=== PATIENT | female | born 1940 | race Caucasian/White ===

== ENCOUNTER → 2016-06-08 | Outpatient (REF) | payer MEDICARE, MEDICAID ==
[2016-06-08 13:35] LABS: PERCENT SATURATION 25.4 % (13.2-37.4)
== END ==
LOC: M LAB REF 12:52
PROVIDERS: ATTEND Nurse Practitioner Family
DX: N39.0 Urinary tract infection, site not specified (principal); D63.1 Anemia in chronic kidney disease; N18.9 Chronic kidney disease, unspecified

== ENCOUNTER → 2016-09-22 | Outpatient (REF) | payer MEDICARE, MEDICAID | LOC: M LAB REF 10:02 | PROVIDERS: ATTEND Physician Assistant | DX: R30.0 Dysuria (principal) ==

== ENCOUNTER 2017-01-28 14:12 | Emergency (ER) | payer MEDICARE, MEDICAID ==
[~2017-01-28] VITALS: Ht 160 cm; Wt 81.8 kg
[2017-01-28] MEDS ORDERED: [UNRECOGNIZED DRUG - OTHER] PO (14:37)
[2017-01-28] MEDS ORDERED: CRES20TA PO (14:37)
[2017-01-28] MEDS ORDERED: LANTINJ4 SC (14:37)
[2017-01-28] MEDS ORDERED: TRAD5TAB PO (14:37)
[2017-01-28] MEDS ORDERED: GLIPPOW PO (14:37)
[2017-01-28] MEDS ORDERED: AMOX500T PO (14:37)
[2017-01-28] MEDS ORDERED: MAGN64TASA PO (14:37)
[2017-01-28] MEDS ORDERED: LEVO50TA5 PO (14:37)
--- NOTE | 2017-01-28 15:42 | REP ---
PA and lateral chest: Comparison 11/29/2014. There is focal increased density above the right hemidiaphragm medially as an interval change. This could be artifact from diaphragmatic lobulation, long mass or infiltrate. This was not definitely present previously. CT might be considered for further evaluation. The remainder of the lung isidro are clear. Cardiac size is normal. The wero, mediastinum, and bony thorax are unremarkable. Impression: Infiltrate versus mass versus diaphragmatic lobulation in relation to the right hemidiaphragm. Consider CT. Signed by Kimani Mcmanus MD 01/28/2017 03:33 P
[2017-01-28 17:41] VITALS: BP 184/87
[2017-01-28] MEDS ORDERED: ZITHTAB PO (18:04)
== END 2017-01-28 18:19 | disposition left against medical advice (07) ==
LOC: M ED 14:12
DX: E11.9 Type 2 diabetes mellitus without complications (principal); E07.9 Disorder of thyroid, unspecified; E87.70 Fluid overload, unspecified; Z79.4 Long term (current) use of insulin; Z79.899 Other long term (current) drug therapy; Z88.8 Allergy status to other drugs, medicaments and biological substances

== ENCOUNTER → 2017-09-30 | Outpatient (REF) | payer MEDICARE, MEDICAID | LOC: M LAB REF 13:53 | DX: N39.0 Urinary tract infection, site not specified (principal) | CPT/HCPCS: 87186 ==

== ENCOUNTER 2018-03-29 11:36 | Emergency (ER) | payer MEDICARE, MEDICAID ==
[2018-03-29 12:56] LABS: BASO % 0.1 % (0.0-1.0); EOS # 0.1 10^3/uL (0.0-0.50); EOS % 0.7 % (0.0-3.0); HEMATOCRIT 36.3 % (36.0-47.0); HEMOGLOBIN 12.2 g/dl (12.0-15.5); IMMATURE GRANULOCYTE % 0.3 % (0-3.0); LYMPH # 2.1 10^3/uL (1.5-4.5); LYMPH % 22.4 % (24.0-44.0); MEAN CORPUSCULAR HGB CONC 33.6 g/dl (32.0-36.5); MEAN CORPUSCULAR VOLUME 92.1 fl (80.0-96.0); MONO # 0.6 10^3/uL (0.0-0.8); MONO % 6.5 % (0.0-5.0); NEUTROPHILS # 6.6 10^3/uL (1.8-7.7); PLATELET COUNT, AUTOMATED 204 10^3/uL (150-450); RED BLOOD COUNT 3.94 10^6/uL (4.00-5.40); RED CELL DISTRIBUTION WIDTH 12.6 % (11.5-14.5); WHITE BLOOD COUNT 9.5 10^3/uL (4.0-10.0)
[2018-03-29] MEDS: MORPHINE 4 MG/ML 1ML VIAL/SYRINGE (J2270) IV (13:08)
[2018-03-29 13:15] LABS: INR 0.96; PARTIAL THROMBOPLASTIN TIME 30.7 SECONDS (25.4-37.6); PROTHROMBIN TIME 12.9 SECONDS (12.1-14.4)
[2018-03-29 13:27] LABS: ALBUMIN 3.9 GM/DL (3.2-5.2); ALBUMIN/GLOBULIN RATIO 0.91 (1.00-1.93); ALKALINE PHOSPHATASE 122 U/L (45-117); ALT/SGPT 25 U/L (12-78); ANION GAP 12 MEQ/L (8-16); AST/SGOT 26 U/L (7-37); BILIRUBIN,DIRECT 0.2 MG/DL (0.0-0.2); BILIRUBIN,TOTAL 0.6 MG/DL (0.2-1.0); BLOOD UREA NITROGEN 49 MG/DL (7-18); CALCIUM LEVEL 8.7 MG/DL (8.8-10.2); CARBON DIOXIDE LEVEL 30 MEQ/L (21-32); CHLORIDE LEVEL 99 MEQ/L (98-107); CPK CREATINE PHOSPHOKINASE 235 U/L (26-192); CREATININE FOR GFR 2.84 MG/DL (0.55-1.30); GLOMERULAR FILTRATION RATE 17.1 (>39); GLUCOSE, FASTING 193 MG/DL (70-100); MB/CK RELATIVE INDEX 0.98 (< OR =4); POTASSIUM SERUM 3.8 MEQ/L (3.5-5.1); SODIUM LEVEL 141 MEQ/L (136-145); TOTAL PROTEIN 8.2 GM/DL (6.4-8.2); TROPONIN I 0.05 NG/ML (< 0.10)
== END 2018-03-29 15:00 | disposition home or self-care (01) ==
LOC: M ED 11:36
DX: S22.42XA Multiple fractures of ribs, left side, initial encounter for closed fracture (principal); W10.8XXA Fall (on) (from) other stairs and steps, initial encounter; Y92.89 Other specified places as the place of occurrence of the external cause; R94.31 Abnormal electrocardiogram [ECG] [EKG]; E78.79 Other disorders of bile acid and cholesterol metabolism; H40.9 Unspecified glaucoma; Z88.8 Allergy status to other drugs, medicaments and biological substances; Z79.890 Hormone replacement therapy; Z79.899 Other long term (current) drug therapy
CPT/HCPCS: J2270

== ENCOUNTER 2018-03-31 18:33 | Emergency (ER) | payer MEDICARE, MEDICAID ==
[2018-03-31] MEDS: BUPIVACAINE LIPOSOME/PF 1.3% 20ML VIAL (13.3MG/ML)(EXPAREL)(C9290 PER1MG) INFIL (20:30)
== END 2018-03-31 23:12 | disposition home or self-care (01) ==
LOC: M ED 18:33
DX: S22.32XA Fracture of one rib, left side, initial encounter for closed fracture (principal); W10.9XXA Fall (on) (from) unspecified stairs and steps, initial encounter; E78.5 Hyperlipidemia, unspecified; N18.9 Chronic kidney disease, unspecified
CPT/HCPCS: C9290

== ENCOUNTER → 2019-02-05 | Outpatient (REF) | payer MEDICARE, MEDICAID ==
[~2019-02-05] MED LIST: AMOX500T PO; BASA100I SQ; CINA30TA4 PO; CRES20TA2 PO; D 202000 PO; FURO20TA2 PO; GLIP10TA18; GLIPPOW PO; ISTA0.5S OU; LANTINJ4 SC; LEVO50TA5 PO; MAGN64TASA PO; PERC5TAB12 PO; TRAD5TAB PO; TRAV04OPD OU; ZITHTAB PO; [UNRECOGNIZED DRUG - OTHER] PO
[2019-02-05 11:18] LABS: ALBUMIN 3.7 GM/DL (3.2-5.2); BILIRUBIN,TOTAL 0.4 MG/DL (0.2-1.0); CALCIUM LEVEL 8.1 MG/DL (8.8-10.2); CHOLESTEROL RISK RATIO 5.227 (<5); CREATININE FOR GFR 2.61 MG/DL (0.55-1.30); FREE T4 1.03 NG/DL (0.76-1.46); GLOMERULAR FILTRATION RATE 18.8 (>39); THYROID STIMULATING HORMONE 5.33 uIU/ML (0.358-3.740); TOTAL 25(OH) VITAMIN D 46.2 NG/ML (30.0-100.0); TOTAL PROTEIN 7.3 GM/DL (6.4-8.2)
== END ==
LOC: M SFHCPLAZ 08:23
PROVIDERS: ATTEND Nurse Practitioner Family
DX: I12.9 Hypertensive chronic kidney disease with stage 1 through stage 4 chronic kidney disease, or unspecified chronic kidney disease (principal); E03.9 Hypothyroidism, unspecified; E78.2 Mixed hyperlipidemia; E55.9 Vitamin D deficiency, unspecified; Z79.899 Other long term (current) drug therapy

== ENCOUNTER → 2019-04-17 | Outpatient (CLI) | payer MEDICARE, MEDICAID ==
[2019-04-17 15:33] LABS: ALBUMIN 3.4 GM/DL (3.2-5.2); BILIRUBIN,TOTAL 0.4 MG/DL (0.2-1.0); CALCIUM LEVEL 8.9 MG/DL (8.8-10.2); CHOLESTEROL RISK RATIO 7.545 (<5); CREATININE FOR GFR 2.64 MG/DL (0.55-1.30); FREE T4 1.04 NG/DL (0.76-1.46); GLOMERULAR FILTRATION RATE 18.6 (>39); POTASSIUM SERUM 4.9 MEQ/L (3.5-5.1); THYROID STIMULATING HORMONE 4.06 uIU/ML (0.358-3.740); TOTAL 25(OH) VITAMIN D 43.2 NG/ML (30.0-100.0); TOTAL PROTEIN 7.4 GM/DL (6.4-8.2)
== END ==
LOC: M PLALAB 10:11
PROVIDERS: ATTEND Nurse Practitioner Family
DX: E03.9 Hypothyroidism, unspecified (principal); E55.9 Vitamin D deficiency, unspecified; E78.2 Mixed hyperlipidemia

== ENCOUNTER → 2019-05-21 | Outpatient (REF) | payer MEDICARE, MEDICAID ==
[2019-05-21 14:25] LABS: ALBUMIN 3.9 GM/DL (3.2-5.2); CALCIUM LEVEL 8.4 MG/DL (8.8-10.2); CREATININE FOR GFR 2.66 MG/DL (0.55-1.30); GLOMERULAR FILTRATION RATE 18.4 (>39); MAGNESIUM LEVEL 1.8 MG/DL (1.8-2.4); POTASSIUM SERUM 4.1 MEQ/L (3.5-5.1); URIC ACID 3.8 MG/DL (2.6-6.0)
== END ==
LOC: M LAB REF 13:59
PROVIDERS: ATTEND Nurse Practitioner Family
DX: N18.4 Chronic kidney disease, stage 4 (severe) (principal); E79.0 Hyperuricemia without signs of inflammatory arthritis and tophaceous disease; E83.42 Hypomagnesemia

== ENCOUNTER → 2019-08-17 | Outpatient (REF) | payer MEDICARE, MEDICAID ==
[2019-08-17 11:15] LABS: ALBUMIN 3.7 GM/DL (3.2-5.2); BILIRUBIN,TOTAL 0.6 MG/DL (0.2-1.0); CALCIUM LEVEL 8.9 MG/DL (8.8-10.2); CHOLESTEROL RISK RATIO 4.333 (<5); CREATININE FOR GFR 2.78 MG/DL (0.55-1.30); FREE T4 0.98 NG/DL (0.76-1.46); GLOMERULAR FILTRATION RATE 17.5 (>32); POTASSIUM SERUM 4.2 MEQ/L (3.5-5.1); THYROID STIMULATING HORMONE 4.04 uIU/ML (0.358-3.740); TOTAL PROTEIN 7.6 GM/DL (6.4-8.2)
[2019-08-17 11:18] LABS: TOTAL 25(OH) VITAMIN D 48.6 NG/ML (30.0-100.0)
== END ==
LOC: M SFHCPLAZ 08:27
PROVIDERS: ATTEND Nurse Practitioner Family
DX: E78.2 Mixed hyperlipidemia (principal); E03.9 Hypothyroidism, unspecified; E55.9 Vitamin D deficiency, unspecified; Z79.899 Other long term (current) drug therapy

== ENCOUNTER 2019-10-13 11:08 | Observation (INO) | payer MEDICARE, MEDICAID ==
[2019-10-13] VITALS (8 sets, daily range): BP systolic 133–158; BP diastolic 55–63
[~2019-10-13] VITALS: Ht 157.5 cm; Wt 81.9 kg
[~2019-10-13 11:08] MED LIST changes: +AMLO5TAB6 PO; +BASA100I SC; +BIMA01SOL OU; +COQ1100C5 PO; +FEBU40TA4 PO; -GLIP10TA18; +GLIP10TA18 PO; +VITAD1000T PO
[2019-10-13 12:18] LABS: BASO % 0.4 % (0.0-1.0); EOS # 0.2 10^3/uL (0.0-0.5); EOS % 2.4 % (0.0-3.0); HEMATOCRIT 27.9 % (36.0-47.0); HEMOGLOBIN 9.1 g/dl (12.0-15.5); LYMPH % 27.6 % (24.0-44.0); MEAN CORPUSCULAR HEMOGLOBIN 30.1 pg (27.0-33.0); MEAN CORPUSCULAR HGB CONC 32.6 g/dl (32.0-36.5); MEAN CORPUSCULAR VOLUME 92.4 fl (80.0-96.0); MONO # 0.8 10^3/uL (0.0-0.8); MONO % 10.1 % (0.0-5.0); NEUTROPHILS # 4.4 10^3/uL (1.5-8.5); NEUTROPHILS % 59.1 % (36.0-66.0); PLATELET COUNT, AUTOMATED 282 10^3/uL (150-450); RED BLOOD COUNT 3.02 10^6/uL (4.00-5.40); WHITE BLOOD COUNT 7.4 10^3/uL (4.0-10.0)
[2019-10-13 12:29] LABS: INR 1.13; PROTHROMBIN TIME 14.2 SECONDS (11.8-14.0)
[2019-10-13 12:30] LABS: PARTIAL THROMBOPLASTIN TIME 34.1 SECONDS (25.0-38.4)
[2019-10-13 12:42] LABS: HEMOGLOBIN A1c 9.2 %
[2019-10-13 12:47] LABS: ALBUMIN 3.4 GM/DL (3.2-5.2); BILIRUBIN,DIRECT 0.2 MG/DL (0.0-0.2); BILIRUBIN,TOTAL 0.6 MG/DL (0.2-1.0); TOTAL PROTEIN 7.4 GM/DL (6.4-8.2); TROPONIN I 0.06 NG/ML (< 0.10)
[2019-10-13 12:49] LABS: MB/CK RELATIVE INDEX 1.53 (< OR =4)
--- NOTE | 2019-10-13 13:40 | REPVR ---
PROCEDURE INFORMATION: Exam: CT Head Without Contrast Exam date and time: 10/13/2019 11:32 AM Age: 79 years old Clinical indication: Altered mental status/memory loss; Other: CVA - nursing interventions must not delay CT TECHNIQUE: Imaging protocol: Computed tomography of the head without contrast. Radiation optimization: All CT scans at this facility use at least one of these dose optimization techniques: automated exposure control; mA and/or kV adjustment per patient size (includes targeted exams where dose is matched to clinical indication); or iterative reconstruction. Other technique: STROKE PROTOCOL was implemented. COMPARISON: CT Head without contrast 10/03/2019 10:58 AM FINDINGS: Brain: No acute intracranial hemorrhage, cerebral edema, or midline shift. Ventricles: No hydrocephalus. Bones/joints: No acute fracture. Sinuses: No acute sinusitis. Mastoid air cells: Visualized mastoid air cells are well aerated. Soft tissues: A 3.5 cm right forehead hematoma is present. IMPRESSION: No acute intracranial abnormality. ASSESSMENT: ASPECTS ([place] Stroke Program Early CT Score) is 10. Electronically signed by: Raul Alonso On 10/13/2019 13:39:42 PM
--- NOTE | 2019-10-13 14:24 | REP ---
REASON: Stroke-like symptoms. COMPARISON: 10/03/2019 The technique utilized in obtaining the radiograph has magnified the cardiac silhouette and accentuated the interstitial markings. Once again, the heart is enlarged but magnified by technique. Once again, there is evidence of interstitial fibrotic change status quo. No acute patchy parenchymal opacities or pleural effusions have developed. Once again, there is a proximal humeral fracture on the right which is known. IMPRESSION: No acute disease. Findings as discussed above. Electronically Signed by Zach Jarvis DO 10/13/2019 03:13 P
[2019-10-13] MEDS ORDERED: NOVOINJ SC (15:23)
[2019-10-13] MEDS ORDERED: LEVO50TA45 PO (15:23)
[2019-10-13] MEDS ORDERED: AMLO5TAB6 PO (15:23)
[2019-10-13] MEDS ORDERED: MOM 30ML SUSPENSION UDC PO PRN (16:15)
[2019-10-13] MEDS ORDERED: DEXTROSE 50% 50 ML SYRINGE IV PRN (17:15)
[2019-10-13] MEDS ORDERED: GLUCAGON INJ 1MG VIAL SC PRN (17:15)
[2019-10-13] MEDS ORDERED: GLUCOSE 4GM CHEW TABLET PO PRN (17:15)
[2019-10-13] MEDS: HumaLOG INSULIN (NovoLOG) PER UNIT SC SCH (17:30)
[2019-10-13] MEDS ORDERED: CLOPIDOGREL 75 MG TAB PO ONE (17:45)
--- NOTE | 2019-10-13 17:51 | HPEPDOC ---
General Date of Admission Oct 13, 2019 at 11:09 Date of Service: Oct 13, 2019 Chief Complaint The patient is a 79-year-old female admitted with a reason for visit of TIA. Source: Patient History of Present Illness 79 year old female who lives alone With PMH of DM, CKD stage 4, hypothyroid, glaucoma, gout, hypertension with recent fall and right proximal humerus fracture 2 weeks ago now immobilized in a sling, woke up this morning to go to the bathroom but was feeling very weak and shaky and dizzy. She checked her sugar which was down to 55 at 6 am . She took some crackers and peanut butter and rechecked her sugar was up to 91. Then she had toast and egg. Her grand datri hter came at 9 am to check on her and her sugar was over 200 then. She got some delivery from pharmacy so opened the door and told the delivery lady to come in but then it was noticed that her speech was slurred and the delivery lady could not understand what she was speaking. There was no associated numbness or weakness. The slurring of speech lasted for about 20 mins. She was taken to her PMD by her granddaughter and PMD advised her to come to the ED for evaluation. She was admitted for possible TIA. In the ED her CT head did not show any acute changes, her labs were significant for a creatinine of 2.9 which is at baseline. CXR no acute disease. Home Medications Scheduled Amlodipine Besylate (Amlodipine Besylate) 5 Mg Tablet, 5 MG PO BID, (Reported) Bimatoprost (Lumigan) 0.01% 2.5ML Drops, 1 DROP OU QHS, (Reported) Cholecalciferol (Vitamin D3) (Vitamin D3) 1,000 Unit Tablet, 1,000 UNITS PO DAILY, (Reported) Cinacalcet (Sensipar) 30 Mg Tab, 30 MG PO 3XW, (Reported) MON, WED, FRI Febuxostat (Uloric) 40 Mg Tablet, 40 MG PO Q2D, (Reported) Furosemide (Furosemide) 20 Mg Tab, 20 MG PO BID, (Reported) Glipizide (Glipizide ER) 10 Mg Tab, 20 MG PO DAILY, (Reported) Insulin Aspart (Novolog) 100 Unit/1 Ml Cartridge, 1 UNITS SC ACHS, (Reported) PER SLIDING SCALE Insulin Glargine,Hum.rec.anlog (Basaglar Kwikpen U-100) 100 Unit/Ml Inj, 30 UNITS SQ QAM, (Reported) Insulin Glargine,Hum.rec.anlog (Basaglar Kwikpen U-100) 100 Unit/1 Ml Insuln.pen, 24 UNIT SC QHS, (Reported) Levothyroxine Sodium (Levoxyl) 50 Mcg Tablet, 75 MCG PO DAILY, (Reported) Linagliptin (Tradjenta) 5 Mg Tab, 5 MG PO DAILY, (Reported) Rosuvastatin Calcium (Crestor) 20 Mg Tab, 20 MG PO QHS, (Reported) Timolol Maleate (Istalol) 0.5 % Anabela, 1 DROP OU DAILY, (Reported) Ubidecarenone (Co Q-10) 100 Mg Capsule, 100 MG PO QHS, (Reported) Allergies Coded Allergies: aspartame (Verified Allergy, Unknown, 10/04/19) aspirin (Verified Allergy, Unknown, "MAKES HEART PUMP", 10/03/19) Past Medical History Medical History Right humerus fracture in september 2019 Hypoglycemias Obesity Glaucoma Hearing problem CHRONIC KIDNEY DISEASE, STAGE 4 (SEVERE) ECTOPIC/PELVIC right kidney RHEUMATIC HEART DISEASE, Rheumatic fever as a child DIABETES WITH COMPLICATIONS - DR MARCUS HYPOTHYROID HYPERLIPIDEMIA GOUT DIVERTICULOSIS SECONDARY HYPERPARATHYROIDISM Chronic anterior fusion seen C4 through C7 with appearance of 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 Advanced disc space narrowing C3-4, C4-5, and C6-7. Endplate sclerosis and heavy posterior osteophytic ridging C4-5. Surgical History APPENDECTOMY AGE 12 CHOLECYSTECTOMY 1993 PARTIAL HYSTERECTOMY 1979 Family History FATHER: , LUNG CANCER, KIDNEY DISEASE MOTHER: , SURGICAL COMPLICATIONS SIBLINGS: HEART DISEASE - [place], DM, CERVICAL CA, SON(S): HEART DISEASE, 1 W/ DM, CABG AT 49, AT AGE 57 DAUGHTER(S): 1 AT Social History * Smoker: Denies Alcohol: Denies Drugs: denies A-FIB/CHADSVASC A-FIB History Current/History of A-Fib/PAF?: No Review of Systems Constitutional: Reports: Weakness, Fatigue; Denies: Chills, Fever, Night Sweats Eyes: Denies: Pain, Vision change ENT: Denies: Head Aches, Ear Pain, Dysphagia Skin: Reports: Bruising (right arm and right chest wall, right forehead) Pulmonary: Denies: Dyspnea, Cough Cardiovascular: Reports: Lt Headedness; Denies: Chest Pain, Palpitations, Orthopnea, Paroxysmal Noc. Dyspnea Physical Examination General Exam: Positive: Alert, Cooperative, No Acute Distress Eye Exam: Positive: PERRLA, Conjunctiva & lids normal, EOMI; Negative: Sclera icteric ENT Exam: Positive: Mucous membr. moist/pink, Pharynx Normal, Tongue Midline, Other ENT (hematoma in the right supra orbital area.) Neck Exam: Positive: Supple; Negative: JVD, thyromegaly Chest Exam: Positive: Clear to auscultation, Normal air movement Heart Exam: Positive: Rate Normal, Regular Rhythm, Normal S1, Normal S2; Negative: Murmurs, Rubs Telemetry: Positive: No significant arrhythmia Abdomen Exam: Positive: Normal bowel sounds, Soft; Negative: Tenderness, Hepatospenomegaly Extremity Exam: Positive: Edema (trace edema at the left ankle); Negative: Clubbing, Cyanosis Skin Exam: Positive: Nl turgor and temperature; Negative: Breakdown, Lesion Neuro Exam: Positive: Normal Speech, Strength at 5/5 X4 ext, Normal Tone, Sensation Intact Psych Exam: Positive: Mental status NL, Memory Intact, Oriented x 3 Vital Signs Vital Signs Date Time Temp Pulse Resp B/P (MAP) Pulse Ox O2 Delivery O2 Flow Rate FiO2 10/13/19 15:08 81 18 98 Room Air 10/13/19 15:00 123/59 (80) 10/13/19 11:27 96.9 Laboratory Data Labs 24H Laboratory Tests 2 10/13/19 11:29: Immature Granulocyte % (Auto) 0.4, Neutrophils (%) (Auto) 59.1, Lymphocytes (%) (Auto) 27.6, Monocytes (%) (Auto) 10.1H, Eosinophils (%) (Auto) 2.4, Basophils (%) (Auto) 0.4, Neutrophils # (Auto) 4.4, Lymphocytes # (Auto) 2.0, Monocytes # (Auto) 0.8, Eosinophils # (Auto) 0.2, Basophils # (Auto) 0.0, Nucleated Red Blood Cells % (auto) 0.0, Prothrombin Time 14.2H, Prothromb Time International Ratio 1.13, Activated Partial Thromboplast Time 34.1, Estimated Mean Plasma Glucose 217H, Hemoglobin A1c 9.2, Total Bilirubin 0.6, Direct Bilirubin 0.2, Aspartate Amino Transf (AST/SGOT) 33, Alanine Aminotransferase (ALT/SGPT) 36, Alkaline Phosphatase 122H, Total Creatine Kinase 131, Creatine Kinase MB 2.0, Creatine Kinase MB Relative Index 1.53, Troponin I 0.06, Total Protein 7.4, Albumin 3.4, Albumin/Globulin Ratio 0.9L 10/13/19 12:18: POC Glucose (Misc Panel) 234H, POC Sodium (Misc Panel) 138, POC Potassium (Misc Panel) 3.8, POC Chloride (Misc Panel) 100, POC Total CO2 (Misc Panel) 25.0, POC Blood Urea Nitrogen (Misc Panel 47H, POC Ionized Calcium (Misc Panel) 4.1L, POC Creatinine (Misc Panel) 2.9H, POC Hematocrit (Misc Panel) 27.0L 10/13/19 12:52: Bedside Glucose (Misc Panel) 207H CBC/BMP Laboratory Tests 10/13/19 11:29 Assessment/Plan 79 year old female who lives alone With PMH of DM, CKD stage 4, hypothyroid, glaucoma, gout, hypertension with recent fall and right humerus fracture 2 weeks ago s/p surgery and fixation woke up this morning to go to the bathroom but was feeling very weak and shaky and dizzy. She checked her sugar which was down to 55 at 6 am . She took some crackers and peanut butter and rechecked her sugar was up to 91. Then she had toast and egg. Her grand daughter came at 9 am to check on her and her sugar was over 200 then. She got some delivery from pharmacy so opened the door and told the delivery lady to come in but then it was noticed that her speech was slurred and the delivery lady could not understand what she was speaking. There was no associated numbness or weakness. The slurring of speech lasted for about 20 mins. She was taken to her PMD by her granddaughter and PMD advised her to come to the ED for evaluation. She was admitted for possible TIA. TIA Vs Effect of Hypoglycemia with rapid correction to hyperglycemia. will get MRI of brain and carotid US Had Echo on 09/2019 shows some valvular disease Moderate aortic valvular sclerosis with mild to marginal stenosis and mild insufficiency. Moderately severe mitral annular thickening and thickening of the mitral leaflets with mild LV inflow tract obstruction and mild insufficiency will monitor under telemetry neuro checks Cannot give ASA due to allergy, will give a dose of plavix. continue statin. Diabetes with frequent hypoglycemia as per patient after she was started on the Novolog insulin her sugars have been fluctuating a lot max in the last 2 weeks since her fracture. A1c at 9.2 will continue OHA give levemir and lispro sliding scale. 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
--- NOTE | 2019-10-13 18:43 | ECGEPIP ---
[facility] - ED Test Date: 2019-10-13 Pat Name: LUIS MANUEL BLUE Department: Room: - Gender: Female Clinical Support Nurse: lucia : 1940 Requested By: DARVIN Deleon Order Number: [id number] Reading MD: Michael Cummings Measurements Intervals [place] Rate: 78 P: -7 FL: 128 QRS: -8 QRSD: 77 T: 45 QT: 402 QTc: 458 Interpretive Statements SINUS RHYTHM SIMILAR TO 10/03/19 Electronically Signed on 10-13-2019 18:42:58 EDT by Michael Cummings
[2019-10-13] MEDS ORDERED: HumaLOG INSULIN (NovoLOG) PER UNIT SC SCH (21:00)
[2019-10-13] MEDS ORDERED: LEVEMIR (INSULIN DETEMIR) 1 UNITS/0.01ML SC SCH (21:00)
[2019-10-13] MEDS ORDERED: ROSUVASTATIN 10 MG TAB (CRESTOR) PO SCH (21:00)
--- NOTE | 2019-10-13 21:25 | REPVR ---
PROCEDURE INFORMATION: Exam: MR Head Without Contrast Exam date and time: 10/13/2019 9:18 PM Age: 79 years old Clinical indication: Dizziness; Additional info: Tia/stroke TECHNIQUE: Imaging protocol: MR of the head without contrast. COMPARISON: CT Head without contrast 10/13/2019 11:22 AM FINDINGS: Brain: Mild cerebral atrophy. Scattered old lacunar infarcts in the cerebellum. No acute infarction is seen. No midline shift, mass, or herniation. Changes of mild chronic white matter microvascular disease are noted. Ventricles: Normal. No ventriculomegaly. Bones/joints: Unremarkable. Sinuses: Normal as visualized. No acute sinusitis. Mastoid air cells: Normal as visualized. No mastoid effusion. Orbits: Unremarkable. Soft tissues: There is a 3.0 cm subcutaneous hematoma in the right frontal scalp. IMPRESSION: 1. Atrophy and mild chronic white matter changes. No acute findings. 2. Right frontal scalp hematoma. Electronically signed by: Danilo Mistry On 10/13/2019 21:25:36 PM
[2019-10-13] MEDS: amLODIPine 5 MG TAB PO SCH (22:28)
[2019-10-13] MEDS: DOCUSATE SODIUM 100 MG CAP PO SCH (22:30)
--- NOTE | 2019-10-13 23:48 | REPVR ---
PROCEDURE INFORMATION: Exam: US Duplex Bilateral Extracranial Arteries Exam date and time: 10/13/2019 11:26 PM Age: 79 years old Clinical indication: Altered mental status/memory loss; Confusion or disorientation; Additional info: Tia/stoke TECHNIQUE: Imaging protocol: Real-time Duplex ultrasound scan of the bilateral carotid and vertebral arteries combining guardado scale, color Doppler and spectral waveform analysis. Bilateral exam. COMPARISON: CT Head without contrast 10/13/2019 11:22 AM FINDINGS: Right common carotid artery: No significant plaque. No occlusion or stenosis. Waveforms are normal. Right internal carotid artery: No significant plaque. Peak systolic velocity is 120 cm/s. No occlusion or stenosis. Waveforms are normal. Right ICA/CCA ratio: Normal at 0.9. Right external carotid artery: No stenosis in the origin. Right vertebral artery: Not visualized. Left common carotid artery: Unremarkable. No occlusion or stenosis. Waveforms are normal. Left internal carotid artery: No significant plaque. Peak systolic velocity is 126 cm/s.. No occlusion or stenosis. Waveforms are normal. Left ICA/CCA ratio: Normal at 1.1. Left external carotid artery: No stenosis in the origin. Left vertebral artery: Unremarkable. Antegrade flow. IMPRESSION: 1. No carotid arterial stenosis. 2. Right vertebral artery is not visualized. REFERENCES: SRU CRITERIA. The degree of internal carotid artery stenosis is based on criteria defined by the Society of Radiologists in Ultrasound (SRU). Normal is no stenosis. Mild is less than 50% stenosis. Moderate is 50-69% stenosis. Severe is greater than 69% stenosis to near occlusion. Near occlusion is a markedly narrowed lumen. Total occlusion is no detectable patent lumen. Electronically signed by: Danilo Mistry On 10/13/2019 23:48:45 PM
[2019-10-14] MEDS ORDERED: ACETAMINOPHEN TAB 650MG DOSE (2X325MG) PO PRN (00:30)
[2019-10-14 05:55] LABS: BASO % 0.4 % (0.0-1.0); EOS # 0.2 10^3/uL (0.0-0.5); EOS % 2.9 % (0.0-3.0); HEMATOCRIT 31.6 % (36.0-47.0); HEMOGLOBIN 10.1 g/dl (12.0-15.5); LYMPH % 48.3 % (24.0-44.0); MEAN CORPUSCULAR HEMOGLOBIN 29.5 pg (27.0-33.0); MEAN CORPUSCULAR VOLUME 92.4 fl (80.0-96.0); MONO # 0.9 10^3/uL (0.0-0.8); NEUTROPHILS # 3.1 10^3/uL (1.5-8.5); NEUTROPHILS % 37.2 % (36.0-66.0); PLATELET COUNT, AUTOMATED 329 10^3/uL (150-450); RED BLOOD COUNT 3.42 10^6/uL (4.00-5.40); WHITE BLOOD COUNT 8.3 10^3/uL (4.0-10.0)
[2019-10-14 06:00] VITALS: BP 127/53
[2019-10-14] MEDS ORDERED: LEVOTHYROXINE 75MCG TABLET (0.075MG) PO SCH (06:00)
[2019-10-14 06:04] LABS: CALCIUM LEVEL 8.8 MG/DL (8.8-10.2); CREATININE FOR GFR 2.54 MG/DL (0.55-1.30); GLOMERULAR FILTRATION RATE 19.4 (>32); POTASSIUM SERUM 3.3 MEQ/L (3.5-5.1)
[2019-10-14] MEDS: HumaLOG INSULIN (NovoLOG) PER UNIT SC SCH ×4 (07:30→17:25)
[2019-10-14] MEDS ORDERED: POTASSIUM CHLORIDE 10 MEQ SR TABLET PO ONE (08:45)
[2019-10-14] MEDS: FUROSEMIDE 20 MG TAB PO SCH ×2 (08:56→17:04)
[2019-10-14 08:57] VITALS: BP 123/58
[2019-10-14] MEDS: amLODIPine 5 MG TAB PO SCH (08:57)
[2019-10-14] MEDS: DOCUSATE SODIUM 100 MG CAP PO SCH (08:59)
[2019-10-14] MEDS ORDERED: LEVEMIR (INSULIN DETEMIR) 1 UNITS/0.01ML SC SCH (09:00)
[2019-10-14] MEDS ORDERED: FEBUXOSTAT 40 MG TABLET (ULORIC) PO SCH (09:00)
[2019-10-14] MEDS ORDERED: glipiZIDE XL 5 MG TABCR PO SCH (09:00)
[2019-10-14] MEDS ORDERED: VITAMIN D 1,000 INTERNATIONAL UNITS TABLET PO SCH (09:00)
[2019-10-14] MEDS ORDERED: CINACALCET 30 MG TAB (SENSIPAR) PO SCH (09:00)
[2019-10-14 14:00] VITALS: BP 129/63
--- NOTE | 2019-10-14 17:08 | DS.PDOC ---
Discharge Summary General Date of Admission Oct 13, 2019 at 11:09 Date of Discharge 10/14/2019 Discharge Summary PROCEDURES PERFORMED DURING STAY: [None]. ADMITTING DIAGNOSES: 1. TIA Vs Effect of Hypoglycemia with rapid correction to hyperglycemia. 2. Diabetes with frequent hypoglycemia 3. 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 hypertension 5. Glaucoma 6. Hyperlipidemia 7. Hypothyroid 8. Gout DISCHARGE DIAGNOSES: 1. Symptomatic hypoglycemic episode, resolved. 2. Diabetes mellitus with frequent hypoglycemia 3. 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 hypertension 5. Glaucoma 6. Hyperlipidemia 7. Hypothyroid 8. Gout COMPLICATIONS/CHIEF COMPLAINT: Symptomatic hypoglycemic episode, resolved. HISTORY OF PRESENT ILLNESS: Pt is a 79 yo female with PMH of DM, CKD stage 4, hypothyroidsm, glaucoma, gout, HTN with recent fall and right proximal humerus fracture 2 weeks ago now immobilized in a sling presented to [facility] after d/t transient slurred speech and dizziness. It was noted on the day of the admission pt woke up this morning to go to the bathroom but was feeling weak with shakiness and dizziness. She checked her blood sugar=55 at 6 am on day of admission. She then ate some crackers and peanut butter, and rechecked blood sugar=91. Pt also had toast and egg afterwards. Her grand daughter came to her place at 9 am at that time her blood sugar>200. It was noted that later pharmacy delivery table feeder noticed that her speech was slurred and the delivery lady could not understand what pt was speaking. The slurring of speech lasted for about 20 mins. Denies associated numbness or weakness. Pt was taken to her PMD by her granddaughter and was advised her to come to ER. Per patient after she was started on the Novolog insulin, her sugars have been fluctuating a lot HOSPITAL COURSE: Pt was admitted for possible TIA. Her CT head and MRI brain showed no acute changes. Her glucose was noted to be low several occasions with lowest=34 and received 50% dextrose IV. Her long acting insulin dose was decreased. She was noted to have mild hypokalemia and received one time dose of K supplement 40meq. Pt reported that the ecchymosis in her right forehead and periorbital region are from fall 2 wks ago. Denies any blurry vision, extremity weakness, or loss of sensation. Pt was determined to be ready to be discharged home DISCHARGE MEDICATIONS: Please see below. ALLERGIES: Please see below. PHYSICAL EXAMINATION ON DISCHARGE: VITAL SIGNS: Please see below. GENERAL APPEARANCE: Alert and awake, not in acute distress HEENT: Head normocephalic, atraumatic, b/l pupil equal and round. Ecchymosis in right forehead and periorbital region with hematoma in the right supra orbital area . EOMI RESPIRATORY: CTA b/l, no rales, wheezing, or rhonchi CARDIOVASCULAR: RRR, normal S1 and S2, no murmur ABDOMEN: Soft, no guarding, bowel sound aus in all 4 quad. EXTREMITIES: Pt moving all 4 extremities. Right shoulder sling in place NEUROLOGICAL: Memory and cognitive function grossly stable. CN2-12 grossly intact PSYCHIATRIC: Mood appro to situation LABORATORY DATA: Please see below. IMAGING: CXR no acute disease Head CT no acute intracranial abnormality Duplex carotid US showed no carotid arterial stenosis. Right vertebral artery is not visualized. MRI brain w/o contrast showed right frontal scalp hematoma PROGNOSIS: Fair ACTIVITY: [As tolerated]. DIET: Diabetic diet DISCHARGE PLAN AND INSTRUCTIONS: 1. Follow up with PCP in 7-10 days 2. Follow up with [facility] 3. Stop Glipizide until further eval by PCP or tracer bullet section supervisor 4. Take Insulin as prescribed ITEMS TO FOLLOWUP ON ON OUTPATIENT: 1. DM with hypoglycemic episodes DISCHARGE CONDITION: [Stable]. TIME SPENT ON DISCHARGE: Greater than [32] minutes. Attending attestation: I evaluated and examined the patient in person; I discussed the care with Resident in detail and agree with the plan above. Vital Signs/I&Os Vital Signs Date Time Temp Pulse Resp B/P (MAP) Pulse Ox O2 Delivery O2 Flow Rate FiO2 10/14/19 14:00 97.4 100 18 129/63 (85) 98 Room Air I&O- Last 24 Hours up to 6 AM 10/14/19 06:00 Intake Total 300 ml Output Total 850 ml Balance -550 ml Laboratory Data Labs 24H Laboratory Tests 2 10/13/19 21:43: Bedside Glucose (Misc Panel) 225H 10/14/19 05:20: Bedside Glucose (Misc Panel) 34*L 10/14/19 05:32: Immature Granulocyte % (Auto) 0.2, Neutrophils (%) (Auto) 37.2, Lymphocytes (%) (Auto) 48.3H, Monocytes (%) (Auto) 11.0H, Eosinophils (%) (Auto) 2.9, Basophils (%) (Auto) 0.4, Neutrophils # (Auto) 3.1, Lymphocytes # (Auto) 4.0, Monocytes # (Auto) 0.9H, Eosinophils # (Auto) 0.2, Basophils # (Auto) 0.0, Nucleated Red Blood Cells % (auto) 0.0, Anion Gap 7L, Glomerular Filtration Rate 19.4L, Calcium Level 8.8 10/14/19 05:33: Bedside Glucose Confirm (Misc) 40 10/14/19 05:51: Bedside Glucose (Misc Panel) 105 10/14/19 11:21: Bedside Glucose (Misc Panel) 170H CBC/BMP Laboratory Tests 10/14/19 05:32 FSBS Laboratory Tests Test 10/13/19 21:43 10/14/19 05:20 10/14/19 05:51 10/14/19 11:21 Range/Units Bedside Glucose (Misc Panel) 225 34 105 170 83-110 MG/DL Discharge Medications Scheduled Amlodipine Besylate (Amlodipine Besylate) 5 Mg Tablet, 5 MG PO BID, (Reported) Bimatoprost (Lumigan) 0.01% 2.5ML Drops, 1 DROP OU QHS, (Reported) Cholecalciferol (Vitamin D3) (Vitamin D3) 1,000 Unit Tablet, 1,000 UNITS PO DAILY, (Reported) Cinacalcet (Sensipar) 30 Mg Tab, 30 MG PO 3XW, (Reported) MON, SAT, FRI Febuxostat (Uloric) 40 Mg Tablet, 40 MG PO Q2D, (Reported) Furosemide (Furosemide) 20 Mg Tab, 20 MG PO BID, (Reported) Insulin Aspart (Novolog) 100 Unit/1 Ml Cartridge, 1 UNITS SC ACHS, (Reported) PER SLIDING SCALE Insulin Glargine,Hum.rec.anlog (Basaglar Kwikpen U-100) 100 Unit/Ml Inj, 30 UNITS SQ QAM, (Reported) Levothyroxine Sodium (Levoxyl) 50 Mcg Tablet, 75 MCG PO DAILY, (Reported) Linagliptin (Tradjenta) 5 Mg Tab, 5 MG PO DAILY, (Reported) Rosuvastatin Calcium (Crestor) 20 Mg Tab, 20 MG PO QHS, (Reported) Timolol Maleate (Istalol) 0.5 % Anabela, 1 DROP OU DAILY, (Reported) Ubidecarenone (Co Q-10) 100 Mg Capsule, 100 MG PO QHS, (Reported) Allergies Coded Allergies: aspartame (Verified Allergy, Unknown, 10/04/19) aspirin (Verified Allergy, Unknown, "MAKES HEART PUMP", 10/03/19) BECKI KLINE DO Oct 14, 2019 17:07 ADEOLA FAIR MD Oct 19, 2019 08:22
[2019-10-14] MEDS ORDERED: TIMOLOL MALEATE 0.5% OPHTH SOLN 5 ML OU SCH (21:00)
== END 2019-10-14 17:23 | disposition home health service (06) ==
LOC: EDBD 11:08 → M ED 11:08 → M ED INP 11:09 → ENRESERV 20:28 → M MSPAV 21:31
PROVIDERS: ADMIT Internal Medicine Nephrology; ATTEND Internal Medicine
DX: E11.649 Type 2 diabetes mellitus with hypoglycemia without coma (principal); N18.4 Chronic kidney disease, stage 4 (severe); E21.1 Secondary hyperparathyroidism, not elsewhere classified; I12.9 Hypertensive chronic kidney disease with stage 1 through stage 4 chronic kidney disease, or unspecified chronic kidney disease; E78.49 Other hyperlipidemia; E03.9 Hypothyroidism, unspecified; M10.9 Gout, unspecified; H40.9 Unspecified glaucoma; Z79.4 Long term (current) use of insulin; Z79.899 Other long term (current) drug therapy; E66.9 Obesity, unspecified; Z88.8 Allergy status to other drugs, medicaments and biological substances
CPT/HCPCS: 36415; 70450; 70551; 71045; 80047; 80048; 80076; 82550; 82553; 82947; 82948; 83036; 84484; 85025; 85610; 85730; 86850; 86900; 86901; 93005; 93041; 93880; 94760; 96374; 97161; 97165; 99285; G0378; G0463

== ENCOUNTER → 2019-10-27 | Outpatient (REF) | payer MEDICARE, MEDICAID ==
[~2019-10-27] MED LIST changes: +AMLO1TAB24 PO; -AMLO5TAB6 PO; +D31000TA2 PO; +LEVO50TA45 PO; +NOVOINJ SC; -VITAD1000T PO
[2019-10-27 14:07] LABS: CREATININE FOR GFR 2.69 MG/DL (0.55-1.30); FREE T4 1.4 NG/DL (0.76-1.46); GLOMERULAR FILTRATION RATE 18.1 (>32); POTASSIUM SERUM 4.4 MEQ/L (3.5-5.1); THYROID STIMULATING HORMONE 1.15 uIU/ML (0.358-3.740)
== END ==
LOC: M SFHCPLAZ 11:37
PROVIDERS: ATTEND Nurse Practitioner Family
DX: I12.9 Hypertensive chronic kidney disease with stage 1 through stage 4 chronic kidney disease, or unspecified chronic kidney disease (principal); E11.22 Type 2 diabetes mellitus with diabetic chronic kidney disease; E03.9 Hypothyroidism, unspecified

== ENCOUNTER → 2020-01-19 | Outpatient (CLI) | payer MEDICARE, MEDICAID ==
--- NOTE | 2020-03-07 13:32 | REP ---
INDICATION: CKD 4. End-stage renal disease. Vein mapping study. Arterial and venous duplex ultrasound. Repeat dictation. COMPARISON: None. TECHNIQUE: Duplex venous and duplex arterial ultrasound is performed through the upper extremities bilaterally. FINDINGS: There is no evidence of deep vein thrombosis in either upper extremity. No evidence of arterial stenosis seen. No occlusion noted. Right upper extremity vein diameter chart: Upper humerus basilic vein 4.7 mm, cephalic vein 3.3 mm Mid humerus basilic 5.1, cephalic 3.5 Lower humerus basilic 4.8, cephalic 3.6 Upper forearm basilic 2.3, cephalic 3.5 Lower mid forearm basilic 2.5, cephalic 3.2 Wrist basilic 1.6, cephalic 2.6, Median cubital 4.8 mm Left upper extremity vein diameter chart: Upper humerus basilic 4.9 mm, cephalic 2.7 mm Mid humerus basilic 4.9, cephalic 2.9 Lower humerus basilic 4.0, cephalic 2.7 Upper forearm basilic 2.5, cephalic 2.1 Mid forearm basilic 2.2, cephalic 2.6 Wrist basilic 1.9, cephalic 3.4 Median cubital 3.9 mm Right upper extremity arterial Doppler peak systolic velocity and size diameter chart: Axillary artery PSV 85 cm/S, 5.5 mm Brachial artery PSV 115 cm/S, 3.8 mm Radial artery PSV 85 cm/S, 3.4 mm Ulnar artery 76 cm/S, 3.3 mm Left upper extremity arterial Doppler peak systolic velocity in size diameter chart: Axillary artery PSV 98 cm/S, 5.7 mm Brachial artery PSV 132 cm/S, 4.1 mm Radial artery 90 cm/S, 2.4 mm Ulnar artery 106 cm/S, 3.5 mm IMPRESSION: Bilateral upper extremity vein mapping study as above. No abnormality noted. <Electronically signed by Antoine Burleson > 03/07/20 [id number]
== END ==
LOC: M RAD 11:35
PROVIDERS: ATTEND Nurse Practitioner Family
DX: N18.4 Chronic kidney disease, stage 4 (severe) (principal); I77.0 Arteriovenous fistula, acquired

== ENCOUNTER → 2020-03-29 | Outpatient (REF) | payer MEDICARE, MEDICAID ==
[2020-03-29 18:15] LABS: FREE T4 1.28 NG/DL (0.76-1.46); THYROID STIMULATING HORMONE 0.714 uIU/ML (0.358-3.740); TOTAL 25(OH) VITAMIN D 36.9 NG/ML (30.0-100.0)
== END ==
LOC: M SFHCPLAZ 16:58
PROVIDERS: ATTEND Nurse Practitioner Family
DX: E03.9 Hypothyroidism, unspecified (principal); E55.9 Vitamin D deficiency, unspecified

== ENCOUNTER → 2020-06-29 | Outpatient (REF) | payer MEDICARE, MEDICAID | LOC: M LAB REF 16:42 | PROVIDERS: ATTEND Nurse Practitioner Family | DX: N39.0 Urinary tract infection, site not specified (principal) ==

== ENCOUNTER → 2020-09-02 | Outpatient (REF) | payer MEDICARE, MEDICAID ==
[2020-09-02 14:45] LABS: BILIRUBIN,TOTAL 0.4 MG/DL (0.2-1.0); CREATININE FOR GFR 2.46 MG/DL (0.55-1.30); FREE T4 1.28 NG/DL (0.76-1.46); THYROID STIMULATING HORMONE 0.885 uIU/ML (0.358-3.740); TOTAL PROTEIN 8.1 GM/DL (6.4-8.2)
== END ==
LOC: M SFHCPLAZ 13:47
PROVIDERS: ATTEND Nurse Practitioner Family
DX: I12.9 Hypertensive chronic kidney disease with stage 1 through stage 4 chronic kidney disease, or unspecified chronic kidney disease (principal); E03.9 Hypothyroidism, unspecified
CPT/HCPCS: 36415; 80053; 84439; 84443; G0463

== ENCOUNTER → 2020-09-14 | Outpatient (REF) | payer MEDICARE, MEDICAID ==
[2020-09-14 11:25] LABS: CHOLESTEROL RISK RATIO 3.413 (<5)
== END ==
LOC: M SFHCPLAZ 10:13
PROVIDERS: ATTEND Nurse Practitioner Family
DX: E78.2 Mixed hyperlipidemia (principal)

== ENCOUNTER 2020-09-18 17:12 | Emergency (ER) | payer MEDICARE, MEDICAID ==
[~2020-09-18] VITALS: Ht 154.9 cm; Wt 73.0 kg
--- NOTE | 2020-09-18 18:33 | REPVR ---
PROCEDURE INFORMATION: Exam: CT Head Without Contrast Exam date and time: 09/18/2020 5:33 PM Age: 80 years old Clinical indication: Injury or trauma; Fall; Blunt trauma (contusions or hematomas) TECHNIQUE: Imaging protocol: Computed tomography of the head without contrast. Radiation optimization: All CT scans at this facility use at least one of these dose optimization techniques: automated exposure control; mA and/or kV adjustment per patient size (includes targeted exams where dose is matched to clinical indication); or iterative reconstruction. COMPARISON: CT Head without contrast 10/13/2019 11:22 AM FINDINGS: Brain: The tentorium appears mildly radiodense bilaterally but is unchanged in comparison to the 10/13/2019 CT and 10/03/2019 CT.There is no acute cortical infarction, intracranial hemorrhage or mass. Cerebral ventricles: The ventricles appear mildly enlarged, but not out of proportion to the degree of parenchymal volume loss. Bones/joints: Unremarkable. No acute fracture. Paranasal sinuses: There is no significant mucoperiosteal thickening or air-fluid levels in the visualized portion of the paranasal sinuses. Mastoid air cells: The middle ear cavities and mastoid air cells are clear. Soft tissues: Unremarkable. IMPRESSION: No acute intracranial findings. Electronically signed by: Basia Strauss On 09/18/2020 18:33:23 PM
--- NOTE | 2020-09-18 18:43 | REPVR ---
PROCEDURE INFORMATION: Exam: CT Cervical Spine Without Contrast Exam date and time: 09/18/2020 5:33 PM Age: 80 years old Clinical indication: Injury or trauma; Fall; Blunt trauma TECHNIQUE: Imaging protocol: Computed tomography images of the cervical spine without contrast. Radiation optimization: All CT scans at this facility use at least one of these dose optimization techniques: automated exposure control; mA and/or kV adjustment per patient size (includes targeted exams where dose is matched to clinical indication); or iterative reconstruction. COMPARISON: No relevant prior studies available. 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 No acute fracture. Partially calcified pannus is seen about the atlantoaxial articulation. There is diffuse degeneration of the uncovertebral and facet joints. C2-C3: No significant spinal canal stenosis or neural foraminal narrowing. C3-C4: No spinal canal stenosis. Moderate right neural foraminal narrowing. C4-C5: No spinal canal stenosis. Moderate right neural foraminal narrowing. C5-C6: No significant spinal canal stenosis or neural foraminal narrowing. C6-C7: No significant spinal canal stenosis or neural foraminal narrowing. C7-T1: No significant spinal canal stenosis or neural foraminal narrowing. Soft tissues: Atherosclerosis. Lungs: Lung apices are normal. Other findings: The radiodensity seen in the 4th ventricle and foramen of Luschka most likely represents choroid plexus and is unchanged in comparison to the prior head CTs. IMPRESSION: No acute fracture or dislocation in the cervical spine. Electronically signed by: Basia Strauss On 09/18/2020 18:43:02 PM
--- NOTE | 2020-09-18 18:48 | REPVR ---
PROCEDURE INFORMATION: Exam: CT Maxillofacial Without Contrast Exam date and time: 09/18/2020 5:33 PM Age: 80 years old Clinical indication: Injury or trauma; Fall; Blunt trauma (contusions or hematomas); Nose TECHNIQUE: Imaging protocol: Computed tomography images of the face without contrast. Radiation optimization: All CT scans at this facility use at least one of these dose optimization techniques: automated exposure control; mA and/or kV adjustment per patient size (includes targeted exams where dose is matched to clinical indication); or iterative reconstruction. COMPARISON: CT Maxilofacial w/out contrast 10/03/2019 10:58 AM FINDINGS: Orbital cavity: The orbits are normal. Bones/joints: There is very slight perhaps 1 mm offset of the right nasal bones without depression. The left nasal bones are stable in comparison to the 10/03/2019 CT. There is overlying soft tissue swelling. The nasal septum appears intact. There is no deviation. Paranasal sinuses: There is no significant mucoperiosteal thickening or air-fluid levels in the visualized portion of the paranasal sinuses. The ostiomeatal complexes are patent bilaterally. Mastoid air cells: The middle ear cavities and mastoid air cells are clear although the inferior right mastoid is poorly pneumatized. Soft tissues: See "Bones/joints" finding. IMPRESSION: There is a fracture of the right nasal bones. Electronically signed by: Basia Strauss On 09/18/2020 18:47:58 PM
[2020-09-18 19:10] VITALS: BP 156/83
== END 2020-09-18 19:11 | disposition home or self-care (01) ==
LOC: M ED 17:12
DX: S00.83XA Contusion of other part of head, initial encounter (principal); S02.2XXA Fracture of nasal bones, initial encounter for closed fracture; W01.0XXA Fall on same level from slipping, tripping and stumbling without subsequent striking against object, initial encounter; Y92.019 Unspecified place in single-family (private) house as the place of occurrence of the external cause; Y93.9 Activity, unspecified; Y99.9 Unspecified external cause status; E11.9 Type 2 diabetes mellitus without complications; I10 Essential (primary) hypertension; N18.4 Chronic kidney disease, stage 4 (severe); E78.5 Hyperlipidemia, unspecified; E03.9 Hypothyroidism, unspecified; I09.9 Rheumatic heart disease, unspecified; I70.90 Unspecified atherosclerosis; Z79.899 Other long term (current) drug therapy

== ENCOUNTER → 2020-12-28 | Outpatient (REF) | payer MEDICARE, MEDICAID ==
[2020-12-28 14:57] LABS: FREE T4 1.15 NG/DL (0.76-1.46); THYROID STIMULATING HORMONE 0.491 uIU/ML (0.358-3.740)
[2020-12-28 15:08] LABS: TOTAL 25(OH) VITAMIN D 49.3 NG/ML (30.0-100.0)
== END ==
LOC: M LAB REF 13:17
PROVIDERS: ATTEND Nurse Practitioner Family
DX: E03.9 Hypothyroidism, unspecified (principal); E55.9 Vitamin D deficiency, unspecified

== ENCOUNTER → 2020-12-28 | Outpatient (REF) | payer MEDICARE, MEDICAID | LOC: M LAB REF 13:19 | PROVIDERS: ATTEND Nurse Practitioner Family | DX: E83.42 Hypomagnesemia (principal) ==

== ENCOUNTER → 2021-03-30 | Outpatient (REF) | payer MEDICARE, MEDICAID | LOC: M LAB REF 13:00 | PROVIDERS: ATTEND Nurse Practitioner Family | DX: E83.42 Hypomagnesemia (principal) ==

== ENCOUNTER → 2021-06-29 | Outpatient (REF) | payer MEDICARE, MEDICAID ==
[2021-06-29 15:10] LABS: CHOLESTEROL RISK RATIO 2.627 (<5); FREE T4 1.62 NG/DL (0.76-1.46); THYROID STIMULATING HORMONE 0.115 uIU/ML (0.358-3.740)
== END ==
LOC: M LAB REF 13:07
PROVIDERS: ATTEND Nurse Practitioner
DX: E78.2 Mixed hyperlipidemia (principal); E03.9 Hypothyroidism, unspecified

== ENCOUNTER → 2021-09-27 | Outpatient (REF) | payer MEDICARE, MEDICAID ==
[~2021-09-27] MED LIST changes: -D31000TA2 PO; +VITA100093 PO
[2021-09-27 17:56] LABS: FREE T4 1.16 NG/DL (0.76-1.46); THYROID STIMULATING HORMONE 2.16 uIU/ML (0.358-3.740)
== END ==
LOC: M LAB REF 16:59
PROVIDERS: ATTEND Nurse Practitioner Family
DX: E03.9 Hypothyroidism, unspecified (principal)

== ENCOUNTER → 2022-03-29 | Outpatient (REF) | payer MEDICARE, MEDICAID ==
[2022-03-29 21:35] LABS: FREE T4 1.17 NG/DL (0.89-1.76); THYROID STIMULATING HORMONE 4.099 uIU/ML (0.55-4.78)
== END ==
LOC: M LAB REF 17:19
PROVIDERS: ATTEND Nurse Practitioner
DX: E03.9 Hypothyroidism, unspecified (principal)

== ENCOUNTER → 2023-06-13 | Outpatient (REF) | payer MEDICARE, MEDICAID, OTHER ==
[2023-06-13 13:29] LABS: APPEARANCE, URINE HAZY (CLEAR); BACTERIA, URINE AUTO 1+ (NEGATIVE); BILIRUBIN, URINE AUTO NEGATIVE (NEGATIVE); BLOOD, URINE BLOOD NEGATIVE (NEGATIVE); COLOR, URINE YELLOW (YELLOW); GLUCOSE, URINE (UA) AUTO NEGATIVE (NEGATIVE); KETONE, URINE AUTO NEGATIVE (NEGATIVE); LEUKOCYTE ESTERASE, URINE AUTO 2+ (NEGATIVE); NITRITE, URINE AUTO NEGATIVE (NEGATIVE); PROTEIN, URINE AUTO 1+ mg/dL (NEGATIVE); RBC, URINE AUTO 1 /HPF (0-3); SPECIFIC GRAVITY URINE AUTO 1.013 (1.002-1.035); SQUAMOUS EPITHELIAL CELL UR AU 16 /HPF (0-6); UROBILINOGEN, URINE AUTO 0.2 mg/dL (0.0-2.0); WBC, URINE AUTO 124 /HPF (0-3)
[2023-06-13 14:06] LABS: CREATININE, URINE 96.3 MG/DL; CREATININE,RANDOM URINE 96.3 MG/DL; MAU/CREAT RATIO 114.2 MCG/MG (0.0-30.0)
[2023-06-13 14:14] LABS: BASO # 0.1 10^3/uL (0.0-0.2); BASO % 0.7 % (0.0-1.0); EOS # 0.4 10^3/uL (0.0-0.5); EOS % 4.8 % (0.0-3.0); HEMATOCRIT 38.5 % (36.0-47.0); HEMOGLOBIN 12.5 g/dl (12.0-15.5); LYMPH # 2.6 10^3/uL (1.5-5.0); MEAN CORPUSCULAR HGB CONC 32.5 g/dl (32.0-36.5); MEAN CORPUSCULAR VOLUME 92.5 fl (80.0-96.0); MONO # 0.8 10^3/uL (0.0-0.8); MONO % 10.2 % (2.0-8.0); NEUTROPHILS # 3.6 10^3/uL (1.5-8.5); NEUTROPHILS % 49.2 % (36.0-66.0); PLATELET COUNT, AUTOMATED 193 10^3/uL (150-450); RED BLOOD COUNT 4.16 10^6/uL (4.00-5.40); WHITE BLOOD COUNT 7.3 10^3/uL (4.0-10.0)
== END ==
LOC: M LAB REF 12:21
PROVIDERS: ATTEND Nurse Practitioner Family
DX: R53.83 Other fatigue (principal)

== ENCOUNTER → 2023-09-05 | Outpatient (REF) | payer MEDICARE, MEDICAID | LOC: M LAB REF 17:06 | PROVIDERS: ATTEND Nurse Practitioner Family | DX: E03.9 Hypothyroidism, unspecified (principal) ==

== ENCOUNTER 2024-04-27 11:30 | Inpatient (IN) | payer MEDICARE, MEDICAID ==
[~2024-04-27] VITALS: Ht 157.5 cm; Wt 69.3 kg
[2024-04-27 12:59] LABS: BASO % 0.3 % (0.0-1.0); EOS # 0.1 10^3/uL (0.0-0.5); EOS % 1.6 % (0.0-3.0); HEMATOCRIT 38.1 % (36.0-47.0); HEMOGLOBIN 12.4 g/dl (12.0-15.5); LYMPH % 31.1 % (24.0-44.0); MEAN CORPUSCULAR HEMOGLOBIN 29.9 pg (27.0-33.0); MEAN CORPUSCULAR HGB CONC 32.5 g/dl (32.0-36.5); MEAN CORPUSCULAR VOLUME 91.8 fl (80.0-96.0); MONO # 0.5 10^3/uL (0.0-0.8); MONO % 7.8 % (2.0-8.0); NEUTROPHILS # 3.7 10^3/uL (1.5-8.5); PLATELET COUNT, AUTOMATED 170 10^3/uL (150-450); RED BLOOD COUNT 4.15 10^6/uL (4.00-5.40); WHITE BLOOD COUNT 6.3 10^3/uL (4.0-10.0)
[2024-04-27] MEDS ORDERED: LEVO50TA5 PO (13:05)
[2024-04-27] MEDS ORDERED: TIMO0.5S20 OD (13:05)
[2024-04-27 13:25] LABS: CK-MB VALUE MASS 1.6 NG/ML (<3.6)
[2024-04-27 13:29] LABS: ALBUMIN 3.6 G/DL (3.2-5.2); BILIRUBIN,DIRECT 0.1 MG/DL (<0.4); BILIRUBIN,TOTAL 0.4 MG/DL (0.3-1.2); CALCIUM LEVEL 9.9 MG/DL (8.3-10.6); CREATININE FOR GFR 1.96 MG/DL (0.55-1.30); GLOMERULAR FILTRATION RATE 25.9 (>32); POTASSIUM SERUM 4.4 MMOL/L (3.5-5.1); TOTAL PROTEIN 7.1 G/DL (5.7-8.2)
[2024-04-27 13:31] LABS: THYROID STIMULATING HORMONE 6.159 uIU/ML (0.55-4.78)
[2024-04-27 13:37] LABS: MB/CK RELATIVE INDEX 1.36 (< OR =4)
[2024-04-27 14:44] LABS: KETONE, URINE AUTO RFX NEGATIVE (NEGATIVE)
[2024-04-27 14:46] LABS: LEUKOCYTE ESTERASE UR AUTO RFX TRACE (NEGATIVE)
[2024-04-27] MEDS ORDERED: GLUCOSE 4 GM CHEW PO PRN (18:45)
[2024-04-27] MEDS ORDERED: GLUCAGON INJ 1MG VIAL SC PRN (18:45)
[2024-04-27] MEDS ORDERED: DEXTROSE 50% 50ML SYRINGE IV PRN (18:45)
[2024-04-27] MEDS ORDERED: ACETAMINOPHEN 325 MG TAB PO PRN (18:55)
[2024-04-27] MEDS ORDERED: MOM 30ML SUSPENSION UDC PO PRN (18:55)
[2024-04-27] MEDS ORDERED: ROSU20TA86 PO (19:44)
[2024-04-27] MEDS ORDERED: FURO20TA2 PO (19:49)
[2024-04-27] MEDS ORDERED: HOME MED LIST COMPLETE! XX SCH (19:55)
[2024-04-27] MEDS: INSULIN LISPRO (NovoLOG) PER UNIT SC SCH (22:18)
[2024-04-27] MEDS: ROSUVASTATIN 10 MG TAB (CRESTOR) PO SCH (22:39)
[2024-04-27] MEDS: LATANOPROST 0.005% OPHTH SOLN 2.5 ML OU SCH (22:39)
[2024-04-27 23:57] LABS: FREE T4 0.99 NG/DL (0.89-1.76)
[2024-04-28] MEDS: ATORVASTATIN 20 MG TAB PO SCH (02:45)
[2024-04-28] MEDS: LEVOTHYROXINE 50MCG TABLET (0.05MG) PO SCH (06:15)
[2024-04-28 07:24] LABS: HEMATOCRIT 36.5 % (36.0-47.0); HEMOGLOBIN 11.9 g/dl (12.0-15.5); MEAN CORPUSCULAR HEMOGLOBIN 30.3 pg (27.0-33.0); MEAN CORPUSCULAR HGB CONC 32.6 g/dl (32.0-36.5); MEAN CORPUSCULAR VOLUME 92.9 fl (80.0-96.0); PLATELET COUNT, AUTOMATED 144 10^3/uL (150-450); RED BLOOD COUNT 3.93 10^6/uL (4.00-5.40); WHITE BLOOD COUNT 6.6 10^3/uL (4.0-10.0)
[2024-04-28] MEDS: INSULIN LISPRO (NovoLOG) PER UNIT SC SCH (07:30)
[2024-04-28 07:59] LABS: CALCIUM LEVEL 9.5 MG/DL (8.3-10.6); CREATININE FOR GFR 1.84 MG/DL (0.55-1.30); GLOMERULAR FILTRATION RATE 27.8 (>32); POTASSIUM SERUM 3.8 MMOL/L (3.5-5.1)
[2024-04-28] MEDS ORDERED: MIRALAX *UNIT DOSE* 17GM PACKET PO PRN (08:05)
[2024-04-28] MEDS: FEBUXOSTAT 40 MG TABLET (ULORIC) PO SCH (09:00)
[2024-04-28] MEDS: TIMOLOL MALEATE 0.5% OPHTH SOLN 5 ML OD SCH (09:00)
[2024-04-28] MEDS ORDERED: amLODIPine 5 MG TAB PO SCH (09:00)
[2024-04-28] MEDS: FUROSEMIDE 20 MG TAB PO SCH ×2 (09:56→17:19)
[2024-04-28] MEDS: SENOKOT S TAB PO SCH (09:56)
[2024-04-28] MEDS: VITAMIN D 1,000 INTERNATIONAL UNITS TABLET PO SCH (09:56)
[2024-04-28] MEDS: LEVEMIR (INSULIN DETEMIR) 1 UNITS/0.01ML SC SCH (09:57)
[2024-04-28 12:04] VITALS: BP 132/62; TEMP 97; O2SAT 99
[2024-04-28 15:49] VITALS: BP 178/72; TEMP 96.8; O2SAT 98
[2024-04-28] MEDS: QUEtiapine FUMARATE 25 MG TAB PO SCH (17:19)
[2024-04-28 18:52] VITALS: BP 134/51
[2024-04-28 20:00] VITALS: BP 153/84; TEMP 96.8; O2SAT 98
[2024-04-29 04:00] VITALS: BP 135/63; TEMP 96.8; O2SAT 97
[2024-04-29 06:56] LABS: HEMATOCRIT 37.8 % (36.0-47.0); HEMOGLOBIN 12.5 g/dl (12.0-15.5); MEAN CORPUSCULAR HEMOGLOBIN 30.2 pg (27.0-33.0); MEAN CORPUSCULAR HGB CONC 33.1 g/dl (32.0-36.5); MEAN CORPUSCULAR VOLUME 91.3 fl (80.0-96.0); PLATELET COUNT, AUTOMATED 157 10^3/uL (150-450); RED BLOOD COUNT 4.14 10^6/uL (4.00-5.40); WHITE BLOOD COUNT 7.6 10^3/uL (4.0-10.0)
[2024-04-29 07:28] LABS: CALCIUM LEVEL 9.5 MG/DL (8.3-10.6); CREATININE FOR GFR 2.04 MG/DL (0.55-1.30); GLOMERULAR FILTRATION RATE 24.7 (>32); POTASSIUM SERUM 3.7 MMOL/L (3.5-5.1)
[2024-04-29] MEDS: INSULIN LISPRO (NovoLOG) PER UNIT SC SCH (07:30)
[2024-04-29] MEDS: CINACALCET 30 MG TAB (SENSIPAR) PO SCH (09:59)
[2024-04-29] MEDS: LEVEMIR (INSULIN DETEMIR) 1 UNITS/0.01ML SC SCH (09:59)
[2024-04-29 12:00] VITALS: BP 160/75; TEMP 96.8; O2SAT 95
[2024-04-29 20:14] VITALS: BP 148/55; TEMP 97.2; O2SAT 95
[2024-04-30 03:37] VITALS: BP 144/51; TEMP 97; O2SAT 95
[2024-04-30 06:35] LABS: HEMATOCRIT 37.8 % (36.0-47.0); HEMOGLOBIN 12.3 g/dl (12.0-15.5); MEAN CORPUSCULAR HEMOGLOBIN 30.1 pg (27.0-33.0); MEAN CORPUSCULAR HGB CONC 32.5 g/dl (32.0-36.5); MEAN CORPUSCULAR VOLUME 92.4 fl (80.0-96.0); PLATELET COUNT, AUTOMATED 146 10^3/uL (150-450); RED BLOOD COUNT 4.09 10^6/uL (4.00-5.40); WHITE BLOOD COUNT 6.4 10^3/uL (4.0-10.0)
[2024-04-30 06:59] LABS: CALCIUM LEVEL 9.4 MG/DL (8.3-10.6); CREATININE FOR GFR 2.45 MG/DL (0.55-1.30); POTASSIUM SERUM 4.2 MMOL/L (3.5-5.1)
[2024-04-30] MEDS: LEVEMIR (INSULIN DETEMIR) 1 UNITS/0.01ML SC SCH (08:29)
[2024-04-30 12:00] VITALS: BP 121/81; TEMP 97.2; O2SAT 98
[2024-04-30] MEDS: NS 0.45% 1,000 ML IV SCH (18:19)
[2024-04-30 21:03] VITALS: BP 148/51; TEMP 97.2; O2SAT 96
[2024-05-01 04:00] VITALS: BP 146/54; TEMP 97; O2SAT 97
[2024-05-01 06:25] LABS: HEMATOCRIT 35.1 % (36.0-47.0); HEMOGLOBIN 11.5 g/dl (12.0-15.5); MEAN CORPUSCULAR HEMOGLOBIN 30.6 pg (27.0-33.0); MEAN CORPUSCULAR HGB CONC 32.8 g/dl (32.0-36.5); MEAN CORPUSCULAR VOLUME 93.4 fl (80.0-96.0); PLATELET COUNT, AUTOMATED 128 10^3/uL (150-450); RED BLOOD COUNT 3.76 10^6/uL (4.00-5.40); WHITE BLOOD COUNT 5.6 10^3/uL (4.0-10.0)
[2024-05-01 06:31] LABS: CREATININE FOR GFR 2.19 MG/DL (0.55-1.30); GLOMERULAR FILTRATION RATE 22.8 (>32); POTASSIUM SERUM 4.1 MMOL/L (3.5-5.1)
[2024-05-01] MEDS: LEVEMIR (INSULIN DETEMIR) 1 UNITS/0.01ML SC SCH (08:41)
[2024-05-01] MEDS ORDERED: SODIUM CHLORIDE 0.9% INJ 10 ML SYR IV PRN (10:30)
[2024-05-01 12:00] VITALS: BP 147/54; TEMP 97; O2SAT 99
[2024-05-01] MEDS: SODIUM CHLORIDE 0.9% INJ 10 ML SYR IV SCH (13:01)
[2024-05-01] MEDS: QUEtiapine FUMARATE 25 MG TAB PO SCH (16:28)
[2024-05-01 21:55] VITALS: BP 146/56; TEMP 97.2; O2SAT 97
[2024-05-02 04:00] VITALS: BP 162/59; TEMP 97; O2SAT 97
[2024-05-02 05:56] LABS: HEMATOCRIT 36.1 % (36.0-47.0); HEMOGLOBIN 11.7 g/dl (12.0-15.5); MEAN CORPUSCULAR HEMOGLOBIN 30.4 pg (27.0-33.0); MEAN CORPUSCULAR HGB CONC 32.4 g/dl (32.0-36.5); MEAN CORPUSCULAR VOLUME 93.8 fl (80.0-96.0); PLATELET COUNT, AUTOMATED 129 10^3/uL (150-450); RED BLOOD COUNT 3.85 10^6/uL (4.00-5.40); WHITE BLOOD COUNT 6.7 10^3/uL (4.0-10.0)
[2024-05-02 06:09] LABS: CALCIUM LEVEL 8.9 MG/DL (8.3-10.6); CREATININE FOR GFR 2.03 MG/DL (0.55-1.30); GLOMERULAR FILTRATION RATE 24.8 (>32); POTASSIUM SERUM 4.3 MMOL/L (3.5-5.1)
[2024-05-02 12:00] VITALS: BP 156/57; TEMP 97; O2SAT 96
[2024-05-03 04:00] VITALS: BP 168/66; TEMP 97.3; O2SAT 99
[2024-05-03 05:00] VITALS: BP 153/66
[2024-05-04 04:00] VITALS: BP 144/53; TEMP 96.6; O2SAT 98
[2024-05-04 05:59] LABS: HEMATOCRIT 34.2 % (36.0-47.0); HEMOGLOBIN 11.1 g/dl (12.0-15.5); MEAN CORPUSCULAR HGB CONC 32.5 g/dl (32.0-36.5); MEAN CORPUSCULAR VOLUME 92.4 fl (80.0-96.0); PLATELET COUNT, AUTOMATED 117 10^3/uL (150-450); WHITE BLOOD COUNT 5.7 10^3/uL (4.0-10.0)
[2024-05-04 06:20] LABS: CREATININE FOR GFR 2.28 MG/DL (0.55-1.30); GLOMERULAR FILTRATION RATE 21.7 (>32); POTASSIUM SERUM 4.3 MMOL/L (3.5-5.1)
[2024-05-05 20:45] VITALS: TEMP 96.8
[2024-05-06 03:40] VITALS: BP 115/45; TEMP 96.8; O2SAT 96
[2024-05-07 04:00] VITALS: BP 146/59; TEMP 96.8; O2SAT 96
[2024-05-08 04:00] VITALS: BP 116/44; TEMP 96.8; O2SAT 97
[2024-05-09 04:30] VITALS: BP 145/55; TEMP 97.3; O2SAT 99
[2024-05-10 03:30] VITALS: BP 143/56; TEMP 97; O2SAT 96
[2024-05-11 04:00] VITALS: BP 145/54; TEMP 96.8; O2SAT 98
[2024-05-11 09:27] VITALS: BP 145/56
[2024-05-11] MEDS ORDERED: QUET1TAB17 PO (13:21)
[2024-05-11] MEDS ORDERED: AMLO25TA PO (13:21)
[2024-05-11] MEDS ORDERED: BASA100I SQ (13:21)
[2024-05-11] MEDS ORDERED: SENN-52 PO (13:21)
== END 2024-05-11 15:03 | disposition home health service (06) | DRG 884 ==
LOC: M ED 11:30 → M ED INP 11:31 → M MSPAV 04-28 15:42 → OBSVTOIN 04-30 17:57
PROVIDERS: ADMIT Student in an Organized Health Care Education/Training Program; ATTEND Internal Medicine
DX: F03.90 Unspecified dementia, unspecified severity, without behavioral disturbance, psychotic disturbance, mood disturbance, and anxiety (principal); N18.4 Chronic kidney disease, stage 4 (severe); F05 Delirium due to known physiological condition; N17.9 Acute kidney failure, unspecified; E87.0 Hyperosmolality and hypernatremia; I24.89 Other forms of acute ischemic heart disease; N25.81 Secondary hyperparathyroidism of renal origin; E11.22 Type 2 diabetes mellitus with diabetic chronic kidney disease; M10.9 Gout, unspecified; Z79.4 Long term (current) use of insulin; H40.9 Unspecified glaucoma; E78.5 Hyperlipidemia, unspecified; E03.9 Hypothyroidism, unspecified; I12.9 Hypertensive chronic kidney disease with stage 1 through stage 4 chronic kidney disease, or unspecified chronic kidney disease; D69.6 Thrombocytopenia, unspecified; E55.9 Vitamin D deficiency, unspecified; K57.90 Diverticulosis of intestine, part unspecified, without perforation or abscess without bleeding; Z88.6 Allergy status to analgesic agent; Z88.8 Allergy status to other drugs, medicaments and biological substances; Z79.899 Other long term (current) drug therapy

== ENCOUNTER → 2024-05-26 | Outpatient (REF) | payer MEDICARE, MEDICAID ==
[~2024-05-26] MED LIST changes: +AMLO25TA PO; +QUET1TAB17 PO; +ROSU20TA86 PO; +SENN-52 PO; +TIMO0.5S20 OD
== END ==
LOC: M LAB REF 17:00
PROVIDERS: ATTEND Nurse Practitioner Family
DX: N39.0 Urinary tract infection, site not specified (principal)